=== PATIENT | male | born 1965 | race Caucasian/White ===

== ENCOUNTER 2018-10-13 12:58 | Inpatient (IN) | payer OTHER ==
[~2018-10-13] VITALS: Ht 177.8 cm; Wt 76.5 kg
[2018-10-13] MEDS ORDERED: ONDANSETRON ODT 4 MG ONE (13:22)
--- NOTE | 2018-10-13 13:27 | NUR ---
[place] [facility] [place] ABD PA[place] AND N/V STARTING LAST NIGHT. CONNECTED TO MONITORS. VSS. IV ESTABLISHED EN ROUTE AND 100MG FENTANYL GIVEN TRANSCRIPTION TYPIST. PA TO BEDSIDE FOR ASSESSMENT. ORDERS RECEIVED. EKG COMPLETE. MEDICATED PER AUG. AWAITING LAB RESULTS AND FURTHER ORDERS.
[2018-10-13] MEDS ORDERED: ONDANSETRON ODT 4 MG PO ONE (13:30)
[2018-10-13 13:59] LABS: BASOPHILS # (AUTO) 0.02 x10^3/uL (0-0.1); BASOPHILS % (AUTO) 0 % (0-1); EOSINOPHILS # (AUTO) 0.01 x10^3/uL (0-0.4); EOSINOPHILS % (AUTO) 0 % (1-7); LYMPHOCYTES % (AUTO) 16 % (22-44); MD NO; MEAN CORPUSCULAR HEMOGLOBIN 32.2 pg (27.5-34.5); MEAN CORPUSCULAR HGB CONC 34.5 g/dL (33.2-36.2); MEAN CORPUSCULAR VOLUME 93.5 fL (81-97); MEAN PLATELET VOLUME 8.1 fL (7.4-10.4); MONOCYTES # (AUTO) 0.83 x10^3/uL (0.2-0.8); MONOCYTES % (AUTO) 8 % (2-9); NEUTROPHILS # (AUTO) 8.42 x10^3/uL (1.8-6.8); NEUTROPHILS % (AUTO) 77 % (42-75); PLATELET COUNT 287 x10^3/uL (130-400); RED BLOOD COUNT 5.23 x10^6/uL (4.38-5.82); RED CELL DISTRIBUTION WIDTH 13.1 % (9.4-14.8)
[2018-10-13 14:05] LABS: ALANINE AMINOTRANSFERASE 30 U/L (12-78); ALBUMIN 4.1 g/dL (3.4-5.0); ANION GAP 9 mmol/L (5-15); CHLORIDE 106 mmol/L (98-107); CREATININE 1.03 mg/dL (0.7-1.3)
[2018-10-13 14:07] LABS: ALKALINE PHOSPHATASE 65 U/L (45-117); BILIRUBIN,TOTAL 1.2 mg/dL (0.2-1.0); TOTAL PROTEIN 7.3 g/dL (6.4-8.2)
[2018-10-13] MEDS ORDERED: POTASSIUM CHLORIDE 20 MEQ TAB.ER.PRT PO ONE ×2 (14:30→15:30)
[2018-10-13] MEDS ORDERED: POTASSIUM CHLORIDE 20 MEQ TAB.ER.PRT ONE (14:37)
--- NOTE | 2018-10-13 14:40 | NUR ---
PT MEDICATED PER AUG. VSS. AWAITING FURTHER ORDERS AND DISPO.
--- NOTE | 2018-10-13 14:59 | NUR ---
RECEIVED REPORT FROM MARCO NUNEZ
[2018-10-13] MEDS ORDERED: ONDANSETRON 2MG/ML, 2ML IVPush ONE (15:30)
[2018-10-13] MEDS ORDERED: MORPHINE SULFATE 4 MG/ML, 1ML ONE (15:33)
[2018-10-13] MEDS: MORPHINE SULFATE 4 MG/ML, 1ML IVPush PRN ×2 (15:38→19:57)
[2018-10-13] MEDS ORDERED: ONDANSETRON 2MG/ML, 2ML ONE (15:39)
[2018-10-13] MEDS ORDERED: FAMOTIDINE 20 MG/2 ML ONE (15:40)
--- NOTE | 2018-10-13 15:45 | NUR ---
PT IN SEVERE ABD PAIN OF 10/10. MORPHINE GIVEN AND PT IS NOW 2/10. PT AWAITING CT SCAN
[2018-10-13] MEDS ORDERED: FAMOTIDINE 20 MG/2 ML IVPush ONE (16:00)
--- NOTE | 2018-10-13 16:45 | NUR ---
PT RESTING IN BED AND AWAITING RESULTS.
[2018-10-13] MEDS ORDERED: OMNIPAQUE 350 MG/ML, 100ML BOTTLE ONE (17:12)
--- NOTE | 2018-10-13 17:51 | NUR ---
PT UP FOR RECHECK.
--- NOTE | 2018-10-13 17:53 | NUR ---
PT RESTING IN BED.
[2018-10-13] MEDS ORDERED: ACETAMINOPHEN 325 MG TABLET PO PRN (18:30)
[2018-10-13] MEDS ORDERED: NICOTINE 14MG/24 HR PATCH.TD24 TD SCH (18:30)
[2018-10-13] MEDS ORDERED: ONDANSETRON 2MG/ML, 2ML IVPush PRN (18:30)
--- NOTE | 2018-10-13 18:31 | NUR ---
CALLED REPORT TO FLOOR AND NURSE NOT AVAILABLE.
--- NOTE | 2018-10-13 18:56 | NUR ---
REPORT OF PT FROM MAYRA CLINTON. ASSUMING CARE OF PT AT THIS TIME
--- NOTE | 2018-10-13 18:59 | NUR ---
attempted to call report to rn and supervisor propellant charge loading- both are terribly busy.
--- NOTE | 2018-10-13 19:00 | NUR ---
report given to daly price
--- NOTE | 2018-10-13 19:34 | NUR ---
REPORT OF PT TO RN SHAW. ALL QUESTIONS ANSWERED.PT RESTING COMFORTABLY IN [facility] AT THIS TIME. TRANSPORT STAFF CALLED FOR PT TRANSPORT.
[2018-10-13 20:14] VITALS: BP 126/85
[2018-10-13] MEDS: morphine SULFATE 10 MG/ML, 1ML IVPush PRN ×2 (20:21→23:35)
[2018-10-13] MEDS: POTASSIUM CHLORIDE 30 MEQ in SODIUM CHLORIDE 0.9% 1,000 ML IV SCH (20:32)
[2018-10-13] MEDS: BISACODYL 10 MG SUPP PR SCH (21:00)
[2018-10-14 01:59] VITALS: BP 113/73
[2018-10-14 04:31] LABS: BASOPHILS # (AUTO) 0.03 x10^3/uL (0-0.1); BASOPHILS % (AUTO) 0 % (0-1); EOSINOPHILS # (AUTO) 0.07 x10^3/uL (0-0.4); EOSINOPHILS % (AUTO) 1 % (1-7); LYMPHOCYTES # (AUTO) 2.78 x10^3/uL (1-3.4); LYMPHOCYTES % (AUTO) 29 % (22-44); MD NO; MEAN CORPUSCULAR HEMOGLOBIN 32.2 pg (27.5-34.5); MEAN CORPUSCULAR HGB CONC 34.4 g/dL (33.2-36.2); MEAN CORPUSCULAR VOLUME 93.8 fL (81-97); MONOCYTES # (AUTO) 0.75 x10^3/uL (0.2-0.8); MONOCYTES % (AUTO) 8 % (2-9); NEUTROPHILS # (AUTO) 5.95 x10^3/uL (1.8-6.8); NEUTROPHILS % (AUTO) 62 % (42-75); PLATELET COUNT 246 x10^3/uL (130-400); RED BLOOD COUNT 4.65 x10^6/uL (4.38-5.82); RED CELL DISTRIBUTION WIDTH 13.5 % (9.4-14.8)
[2018-10-14 04:42] LABS: ALBUMIN 3.5 g/dL (3.4-5.0); ANION GAP 5 mmol/L (5-15); CHLORIDE 113 mmol/L (98-107)
[2018-10-14 04:45] LABS: ALANINE AMINOTRANSFERASE 23 U/L (12-78); ALKALINE PHOSPHATASE 55 U/L (45-117); CREATININE 1.07 mg/dL (0.7-1.3); TOTAL PROTEIN 6.1 g/dL (6.4-8.2)
[2018-10-14] MEDS: morphine SULFATE 10 MG/ML, 1ML IVPush PRN (04:59)
[2018-10-14] MEDS: POTASSIUM CHLORIDE 30 MEQ in SODIUM CHLORIDE 0.9% 1,000 ML IV SCH (05:01)
[2018-10-14 06:29] VITALS: BP 109/66
[2018-10-14] MEDS: BISACODYL 10 MG SUPP PR SCH (09:00)
[2018-10-14] MEDS ORDERED: ONDANSETRON ODT 4 MG PO PRN (11:00)
[2018-10-14 13:02] VITALS: BP 109/69
[2018-10-14] MEDS ORDERED: NICO-486 TD (13:54)
[2018-10-14] MEDS ORDERED: ONDA4TAB13 PO (13:54)
[2018-10-14] MEDS ORDERED: ACET325T14 PO (13:54)
== END 2018-10-14 15:30 | disposition home or self-care (01) | DRG 392 ==
LOC: ED 16:10 → EDIP 17:42 → 4NOR 19:54 → DCLOUNGE 10-14 15:14
PROVIDERS: ADMIT Internal Medicine; ATTEND Internal Medicine
DX: K52.9 Noninfective gastroenteritis and colitis, unspecified (principal); K56.7 Ileus, unspecified; F12.90 Cannabis use, unspecified, uncomplicated; K29.70 Gastritis, unspecified, without bleeding; E87.6 Hypokalemia; D18.03 Hemangioma of intra-abdominal structures; Z80.7 Family history of other malignant neoplasms of lymphoid, hematopoietic and related tissues; Z72.89 Other problems related to lifestyle
CPT/HCPCS: 36415; J3490; 74177; 80053; 83690; 83735; 85025; 93005; 96374; 96375; 99285; G0378; J2405; J3480; Q0162; Q9967; J2270; J7030

== ENCOUNTER 2020-02-10 10:44 | Emergency (ER) | payer OTHER ==
[~2020-02-10] VITALS: Ht 177.8 cm; Wt 84.0 kg
[~2020-02-10 10:44] MED LIST: ACET325T14 PO; NICO-486 TD; ONDA4TAB13 PO
[2020-02-10] MEDS ORDERED: ONDANSETRON 2MG/ML, 2ML ONE ×2 (11:59→13:47)
[2020-02-10] MEDS ORDERED: MORPHINE SULFATE 4 MG/ML, 1ML ONE (11:59)
[2020-02-10] MEDS ORDERED: ONDANSETRON 2MG/ML, 2ML IVPush ONE ×2 (12:00→14:00)
[2020-02-10] MEDS ORDERED: SODIUM CHLORIDE FLUSH 10ML SYR IVF ONE (12:00)
[2020-02-10] MEDS ORDERED: MORPHINE SULFATE 4 MG/ML, 1ML IVPush PRN (12:00)
[2020-02-10] MEDS ORDERED: SODIUM CHLORIDE 0.9% 1,000ML IVBOLUS ONE (12:00)
[2020-02-10 12:06] LABS: BASOPHILS # (AUTO) 0.07 x10^3/uL (0-0.1); BASOPHILS % (AUTO) 1 % (0-1); EOSINOPHILS # (AUTO) 0.18 x10^3/uL (0-0.4); EOSINOPHILS % (AUTO) 2 % (1-7); LYMPHOCYTES # (AUTO) 1.77 x10^3/uL (1-3.4); LYMPHOCYTES % (AUTO) 18 % (22-44); MD NO; MEAN CORPUSCULAR HEMOGLOBIN 32.7 pg (27.5-34.5); MEAN CORPUSCULAR VOLUME 96.2 fL (81-97); MEAN PLATELET VOLUME 8.1 fL (7.4-10.4); MONOCYTES # (AUTO) 0.53 x10^3/uL (0.2-0.8); MONOCYTES % (AUTO) 5 % (2-9); NEUTROPHILS % (AUTO) 74 % (42-75); PLATELET COUNT 278 x10^3/uL (130-400); RED BLOOD COUNT 5.08 x10^6/uL (4.38-5.82); RED CELL DISTRIBUTION WIDTH 13.1 % (9.4-14.8)
[2020-02-10 12:19] LABS: ALBUMIN 3.9 g/dL (3.4-5.0); ANION GAP 9 mmol/L (5-15); CALCIUM 9.3 mg/dL (8.5-10.1); CHLORIDE 107 mmol/L (98-107); CREATININE 1.19 mg/dL (0.7-1.3)
[2020-02-10 12:22] LABS: ALANINE AMINOTRANSFERASE 31 U/L (12-78); ALKALINE PHOSPHATASE 65 U/L (45-117); TOTAL PROTEIN 7.3 g/dL (6.4-8.2)
--- NOTE | 2020-02-10 12:25 | NUR ---
DIFFICULT IV START BUT IV ESTABLISHED AND MEDS GIVEN FOR 10/10 EPIGASTRIC ABD PAIN. NS BOLUS INFUSING. US AT BS. FAMILY AT BS. CALL LIGHT WITHIN REACH. PULSE OX AND BP CUFF PLACED.
--- NOTE | 2020-02-10 14:00 | NUR ---
PT FEELING BETTER, NAUSEA AND PAIN GONE. PT READY FOR DISCHARGE
--- NOTE | 2020-02-10 14:05 | NUR ---
WATER PROVIDED FOR PO CHALLENGE.
[2020-02-10 14:29] VITALS: BP 121/64
--- NOTE | 2020-02-10 14:29 | NUR ---
PT TOLERATED PO FLUIDS WELL, NO N/V OR INCREASE IN PAIN. PT DISCHARGED HOME WITH FAMILY
== END 2020-02-10 14:32 | disposition home or self-care (01) ==
LOC: ED 12:01
DX: R10.13 Epigastric pain (principal); R11.2 Nausea with vomiting, unspecified
CPT/HCPCS: 36415; 76700; 80053; 83690; 85025; 96361; 96374; 96375; 96376; 99284; J2270; J2405; J7030

== ENCOUNTER 2020-06-17 13:30 | Emergency (ER) | payer OTHER ==
[~2020-06-17] VITALS: Ht 177.8 cm; Wt 78.1 kg
[2020-06-17] MEDS ORDERED: PANTOPRAZOLE 40 MG IV IVPush ONE (14:00)
[2020-06-17] MEDS ORDERED: ONDANSETRON 2MG/ML, 2ML IVPush ONE (14:00)
[2020-06-17] MEDS ORDERED: MORPHINE SULFATE 4 MG/ML, 1ML IVPush PRN (14:00)
[2020-06-17] MEDS ORDERED: SODIUM CHLORIDE 0.9% 1,000ML IVBOLUS ONE (14:00)
--- NOTE | 2020-06-17 14:04 | NUR ---
SINCE THURSDAY N/V ABD PAIN EVERYWHERE. SIMILAIR EVENTS X3 IN THE LAST 18 MONTHS. PT IN BED IN GOWN WITH CONT SPO2, BP Q 30 MIN, SIDE RIALS UP X2, CALL LIGHT IN REACH. FAMILY AT BEDSIDE. AWATING MD ORDERS. 20G IV PUT IN RIGH AC.
--- NOTE | 2020-06-17 14:05 | NUR ---
BLOOD SENT TO LAB
[2020-06-17] MEDS ORDERED: ONDANSETRON 2MG/ML, 2ML ONE ×2 (14:08→14:14)
[2020-06-17] MEDS ORDERED: PANTOPRAZOLE 40 MG IV ONE (14:08)
[2020-06-17] MEDS ORDERED: MORPHINE SULFATE 4 MG/ML, 1ML ONE (14:08)
[2020-06-17 14:09] LABS: BASOPHILS % (AUTO) 1 % (0-1); EOSINOPHILS % (AUTO) 0 % (1-7); LYMPHOCYTES % (AUTO) 24 % (22-44); MEAN CORPUSCULAR HEMOGLOBIN 32.1 pg (27.5-34.5); MEAN CORPUSCULAR HGB CONC 34.6 g/dL (33.2-36.2); MEAN PLATELET VOLUME 7.9 fL (7.4-10.4); MONOCYTES % (AUTO) 8 % (2-9); NEUTROPHILS % (AUTO) 67 % (42-75); PLATELET COUNT 300 x10^3/uL (130-400); RED BLOOD COUNT 5.53 x10^6/uL (4.38-5.82)
[2020-06-17 14:10] LABS: MD NO
[2020-06-17 14:18] LABS: ALANINE AMINOTRANSFERASE 27 U/L (12-78); ALBUMIN 3.7 g/dL (3.4-5.0); ANION GAP 8 mmol/L (5-15); CALCIUM 8.6 mg/dL (8.5-10.1); CHLORIDE 108 mmol/L (98-107); CREATININE 0.89 mg/dL (0.7-1.3)
[2020-06-17 14:21] LABS: ALKALINE PHOSPHATASE 80 U/L (45-117); TOTAL PROTEIN 6.8 g/dL (6.4-8.2)
[2020-06-17] MEDS ORDERED: MAALOX/HYOSCYAMINE/LIDOCAINE 45 ML BTL PO ONE (14:30)
[2020-06-17] MEDS ORDERED: MAALOX/HYOSCYAMINE/LIDOCAINE 45 ML BTL ONE (14:44)
--- NOTE | 2020-06-17 15:15 | NUR ---
PT PASSED PO OSIRIS. STATED HE IS ABLE TO KEEP WATER DOWN WITHOUT PROBLEM. ERP AWARE
[2020-06-17 16:00] VITALS: BP 106/81
== END 2020-06-17 16:23 | disposition home or self-care (01) ==
LOC: ED 14:22
DX: E86.0 Dehydration (principal); R11.2 Nausea with vomiting, unspecified; R19.7 Diarrhea, unspecified; R10.9 Unspecified abdominal pain
CPT/HCPCS: 36415; 80053; 83690; 85025; 96361; 96374; 96375; 99285; C9113; J2270; J2405; J7030